=== PATIENT | male | born 1965 | race Caucasian/White ===

== ENCOUNTER 2020-12-23 20:00 | Inpatient (IN) | payer OTHER ==
[~2020-12-23] VITALS: Ht 185.4 cm; Wt 89.8 kg
[2020-12-23] MEDS ORDERED: SODIUM CHLORIDE 0.9% 1,000 ML IV ONE (20:30)
[2020-12-23 21:01] LABS: BASOPHILS % 1.1 % (0.0-2.0); EOSINOPHILS % 2.3 % (0.0-5.0); HEMOGLOBIN. 13.2 g/dL (14.0-18.0); LYMPHOCYTES % 31.9 % (20.0-50.0); MEAN CORPUSCULAR HEMOGLOBIN 28.4 pg (28.0-32.0); MEAN CORPUSCULAR VOLUME 84.2 fL (80.0-94.0); MEAN PLATELET VOLUME 8.1 fl (7.4-10.4); MONOCYTES % 6.3 % (2.0-8.0); NEUTROPHILS % 58.4 % (40.0-76.0); PLATELET 241 x1000/uL (130-400); RED BLOOD CELL COUNT 4.64 mill/uL (4.7-6.1); RED CELL DISTRIBUTION WIDTH 13.8 % (11.6-14.6)
[2020-12-23 21:05] LABS: CHLORIDE 108 mEq/L (98-107)
[2020-12-23] MEDS ORDERED: ONDANSETRON HCL 4MG/2ML INJ IV PRN (23:15)
[2020-12-23] MEDS ORDERED: ZOLPIDEM TARTRATE 5MG TABLET PO PRN (23:15)
[2020-12-23] MEDS ORDERED: DIPHENHYDRAMINE 50MG/ML VIAL IV PRN (23:15)
[2020-12-23] MEDS ORDERED: ACETAMINOPHEN 325MG TABLET PO PRN ×2 (23:15)
[2020-12-23] MEDS ORDERED: MAGNESIUM/ALUMINUM HYDROXIDE/SIMETHICONE 30ML UDC PO PRN (23:15)
[2020-12-24 05:22] VITALS: BP 127/78
[2020-12-24] MEDS: SODIUM CHLORIDE 0.9% INJ 3ML FLUSH IVF SCH ×2 (05:44→14:07)
[2020-12-24] MEDS: PANTOPRAZOLE 40MG DR TABLET PO SCH ×2 (05:45→20:33)
[2020-12-24 07:44] VITALS: BP 118/75
[2020-12-24] MEDS: ENOXAPARIN 40MG/0.4ML SYR SUBCUT SCH (09:41)
[2020-12-24] MEDS: METOPROLOL TARTRATE 25MG TABLET PO SCH ×2 (11:13→20:33)
[2020-12-24 12:00] VITALS: BP 117/79
[2020-12-24] MEDS ORDERED: METOPROLOL TARTRATE 5MG/5ML VIAL IV NR (13:30)
[2020-12-24 16:00] VITALS: BP 111/72
[2020-12-24] MEDS ORDERED: REGADENOSON 0.4 MG/5 ML IV NR (18:00)
[2020-12-24 20:00] VITALS: BP 131/82
[2020-12-24] MEDS ORDERED: ATORVASTATIN CALCIUM 20MG TABLET PO SCH (21:00)
[2020-12-25] VITALS: BP 120/78
[2020-12-25] MEDS: SODIUM CHLORIDE 0.9% INJ 3ML FLUSH IVF SCH ×3 (02:19→14:19)
[2020-12-25 04:00] VITALS: BP 110/77
[2020-12-25] MEDS: PANTOPRAZOLE 40MG DR TABLET PO SCH ×2 (05:56→06:07)
[2020-12-25 08:00] VITALS: BP 119/82
[2020-12-25] MEDS: ENOXAPARIN 40MG/0.4ML SYR SUBCUT SCH (08:59)
[2020-12-25] MEDS: METOPROLOL TARTRATE 25MG TABLET PO SCH (08:59)
[2020-12-25] MEDS ORDERED: NITROGLYCERIN SPRAY/4.9GM CAN TL SCH (09:00)
[2020-12-25] MEDS ORDERED: IOHEXOL-350 100 ML BOTTLE ONE (09:08)
[2020-12-25 12:00] VITALS: BP 107/78
[2020-12-25 15:39] VITALS: BP 107/78
[2020-12-25 16:00] VITALS: BP 130/85
== END 2020-12-25 15:45 | disposition home or self-care (01) | DRG 73 ==
LOC: ER 20:00 → 5WST 22:42 → ENRESERV 12-24 03:55
PROVIDERS: ADMIT Internal Medicine; ATTEND Internal Medicine
DX: G90.8 Other disorders of autonomic nervous system (principal); G93.41 Metabolic encephalopathy; R07.89 Other chest pain; E78.5 Hyperlipidemia, unspecified; I95.9 Hypotension, unspecified; I11.9 Hypertensive heart disease without heart failure; E78.00 Pure hypercholesterolemia, unspecified; I48.0 Paroxysmal atrial fibrillation; Z82.49 Family history of ischemic heart disease and other diseases of the circulatory system
CPT/HCPCS: 36415; 71045; 75571; 80053; 80061; 83036; 83880; 84484; 85025; 85379; 93005; 93306; 99285; J1650; J3490; J7030; Q9967